=== PATIENT | male | born 1980 | race Two or more races ===

== ENCOUNTER 2022-08-09 09:35 | Emergency (ER) | payer MEDICAID, SELFPAY ==
--- NOTE | ~2022-08-09 | XR_ITS ---
EXAMINATION: XR CHEST CLINICAL INFORMATION: Shortness of breath with asthma COMPARISON: None TECHNIQUE: 2 views of the chest were obtained. FINDINGS: No significant abnormality is noted involving the heart, lungs, mediastinum, bony thorax or soft tissues. XR/XR chest 2V IMPRESSION: Unremarkable examination.
[2022-08-09 09:43] VITALS: BP 104/66; PULSE 87; RESP 19; TEMP 36.6; O2SAT 99; BMI 30.4
--- NOTE | 2022-08-09 10:55 | ED_ITS ---
HPI - Asthma General Chief Complaint: Upper Respiratory Symptoms Stated Complaint: Asthma /albuterol not helping Time Seen by Provider: 08/09/22 10:52 Source: patient Mode of arrival: ambulatory Limitations: no limitations History of Present Illness HPI Narrative: 41 yo male with history of asthma presents to the ER for evaluation of 1 week of cough and runny nose. He has been using his girlfriends inhaler with some improvement but the cough is keeping him up at night. He woke up the other night sweaty and feeling like he had a fever. No other febrile episodes. No nausea, vomiting, abdominal pain or diarrhea. No other sick contacts at home. 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 He only wears a mask sometimes. MD complaint: other (cough) Onset (ago): week(s) (1) Severity: worse than usual Context: recent URI Associated symptoms: dry cough Treatments Prior to Arrival: inhaled bronchodilator Related Data Current Asthma Therapy: inhaled bronchodilator Previous Rx's Medication Instructions Recorded albuterol sulfate 90 mcg/actuation 2 inh inhalation QID PRN shortness 08/09/22 aerosol inhaler of breath or wheezing #6.7 grams hydrocodone-homatropine 5 mg-1.5 5 ml PO Q4-6H PRN cough #60 mL 08/09/22 mg/5 mL (5 mL) oral syrup (Hycodan) prednisone 20 mg tablet 40 mg PO DAILY #10 tabs 08/09/22 Allergies Allergy/AdvReac Type Severity Reaction Status Date / Time No Known Allergies Allergy Verified 08/09/22 09:42 Review of Systems Review of Systems: Yes all other systems are reviewed and are negative [facility] Social History Social History Advance Directives: Yes Advance Directives Information Provided: Yes Advance Directives on File: No Physical Exam Vital Signs: Vital Signs: Last Vital Signs Temp 98 F 08/09/22 09:43 Pulse 87 08/09/22 09:43 Resp 19 08/09/22 09:43 BP 104/66 08/09/22 09:43 Pulse Ox 99 08/09/22 09:43 O2 Del Method 08/09/22 09:43 BMI result Body Mass Index 30.4 Appearance: Alert. Oriented X3. No acute distress. Eyes: Pupils equal, round and reactive to light. ENT: Pharynx normal. clear, watery nasal discharge. normal TMs bilaterally. Neck: Normal inspection. Neck supple. CVS: Normal heart rate and rhythm. Pulses normal. Respiratory: No respiratory distress. Breath sounds slightly coarse but no wheezing or rhonchi. Skin: Skin warm and dry. Normal skin color. Normal skin turgor. No rashes. Extremities: No lower extremity edema. Neuro: Oriented X 3. Nonfocal Course Course Course Narrative: 41 yo male presenting with cough, runny nose, SOB x1 week. Most likely viral syndrome. Lungs without wheezing. CXR without pneumonia. Will d/c with albuertol, prednisone and antitussive. Patient agrees with plan. asl interpreter used to discuss results and plan. Medical Decision Making Differential Diagnosis Differential Diagnoses: The differential diagnosis associated with the presentation includes COVID, Flu, RSV, viral pneumonia, bacterial pneumonia. sinus infection. asthma exacerbation Independent Interpretation I performed an independent interpretation of an: Plain X-Ray Interpretation: CXR reviewed - no focal infiltrate or effusion Radiology Impression Discussion of test interpretation with radiology: I have reviewed the radiologist's reading. Radiologist Impression: FINDINGS: No significant abnormality is noted involving the heart, lungs, mediastinum, bony thorax or soft tissues. XR/XR chest 2V IMPRESSION: Unremarkable examination. Prescription Management I considered prescription management with: Antibiotic not indicated, no PNA Critical Care Time Critical Care Time Critical Care Time: No Discharge Plan Discharge Clinical Impression: Viral infection Patient Disposition: Home, Self-Care Instructions: Viral Syndrome (ED) Additional Instructions: If you develop new or worsening symptoms call 911 or come back to the ER for further evaluation. Prescriptions: New prednisone 20 mg tablet 40 mg PO DAILY Qty: 10 0RF albuterol sulfate 90 mcg/actuation HFA aerosol inhaler 2 inh inhalation QID PRN (Reason: shortness of breath or wheezing) Qty: 6.7 0RF hydrocodone-homatropine [Hycodan] 5-1.5 mg/5 mL (5 mL) syrup 5 ml PO Q4-6H PRN (Reason: cough) Qty: 60 0RF Rx Instructions: Partial Fill upon patient request. Stand Alone Forms: Work/School Release Print Language: Lithuanian
[2022-08-09 12:32] VITALS: BP 109/69; RESP 18
== END 2022-08-09 12:35 | disposition home or self-care (01) ==
PROVIDERS: Emergency Provider Emergency Medicine
DX: B34.9 Viral infection, unspecified (principal); R05.9 Cough, unspecified
CPT/HCPCS: 71046; 99283; 99284

== ENCOUNTER 2023-01-12 14:06 | Emergency (ER) | payer MEDICAID, SELFPAY ==
--- NOTE | ~2023-01-12 | US_ITS ---
EXAMINATION: US SCROTUM US SCROTUM DOPPLER CLINICAL INFORMATION: Pain, swelling of scrotum.. COMPARISON: None available. TECHNIQUE: A sonogram of the scrotum was performed assessing stone-scale appearance and color Doppler flow. Spectral Doppler analysis of the arterial and venous flow were performed in the testes bilaterally. FINDINGS: The left testicle is slightly larger than right testicle. The right testicle measures 5.1 x 2 x 3.5 cm, 18 mL. The left testicle is 5.3 x 2.9 x 3 cm, 24 mL. The left testicle is mildly heterogeneous. The right testicle has normal echotexture. No testicular masses or microlithiasis. Color Doppler images with spectral waveforms show presence of normal arterial and venous flow within the testicles. On a [id number] comparison of the vascularity of the testicles, the left testicle is mildly hypervascular when compared to the right. Also, there appears to be slightly increased vascularity of the left epididymis when compared to the right. These findings would raise suspicion for mild epididymoorchitis if clinically there is any left-sided pain. No hydrocele or extratesticular mass. There are a few cysts of the right epididymis, largest in the head measuring 1.4 x 1.4 x 1.5 cm. No cysts within the left epididymis. No varicocele. US/US scrotum IMPRESSION: * There is mild increased vascularity of the left testicle and left epididymis when compared to the right, and left testicle has slightly heterogeneous echotexture. These findings are suspicious for mild left-sided epididymoorchitis. However, no left-sided hydrocele. Query if patient has any left scrotal pain. * There are a few cysts of the right epididymis, largest in the head 1.5 cm.
--- NOTE | ~2023-01-12 | US_ITS ---
EXAMINATION: US SCROTUM US SCROTUM DOPPLER CLINICAL INFORMATION: Pain, swelling of scrotum.. COMPARISON: None available. TECHNIQUE: A sonogram of the scrotum was performed assessing stone-scale appearance and color Doppler flow. Spectral Doppler analysis of the arterial and venous flow were performed in the testes bilaterally. FINDINGS: The left testicle is slightly larger than right testicle. The right testicle measures 5.1 x 2 x 3.5 cm, 18 mL. The left testicle is 5.3 x 2.9 x 3 cm, 24 mL. The left testicle is mildly heterogeneous. The right testicle has normal echotexture. No testicular masses or microlithiasis. Color Doppler images with spectral waveforms show presence of normal arterial and venous flow within the testicles. On a [id number]-wjca comparison of the vascularity of the testicles, the left testicle is mildly hypervascular when compared to the right. Also, there appears to be slightly increased vascularity of the left epididymis when compared to the right. These findings would raise suspicion for mild epididymoorchitis if clinically there is any left-sided pain. No hydrocele or extratesticular mass. There are a few cysts of the right epididymis, largest in the head measuring 1.4 x 1.4 x 1.5 cm. No cysts within the left epididymis. No varicocele. US/US scrotum doppler IMPRESSION: * There is mild increased vascularity of the left testicle and left epididymis when compared to the right, and left testicle has slightly heterogeneous echotexture. These findings are suspicious for mild left-sided epididymoorchitis. However, no left-sided hydrocele. Query if patient has any left scrotal pain. * There are a few cysts of the right epididymis, largest in the head 1.5 cm.
[2023-01-12 14:35] VITALS: BP 129/82; PULSE 86; RESP 18; TEMP 36.9; O2SAT 100; BMI 29.8
--- NOTE | 2023-01-12 14:36 | ED.GENADULT ---
HPI - General Adult General Chief complaint: General Medical Stated complaint: pain in groin ? Time Seen by Provider: 01/12/23 21:02 Related Data Previous Rx's Medication Instructions Recorded albuterol sulfate 90 mcg/actuation 2 inh inhalation QID PRN shortness 08/09/22 aerosol inhaler of breath or wheezing #6.7 grams hydrocodone-homatropine 5 mg-1.5 5 ml PO Q4-6H PRN cough #60 mL 08/09/22 mg/5 mL (5 mL) oral syrup (Hycodan) prednisone 20 mg tablet 40 mg PO DAILY #10 tabs 08/09/22 ibuprofen 400 mg tablet 400 mg PO Q6H PRN pain #20 tabs 01/12/23 levofloxacin 500 mg tablet 500 mg PO DAILY #10 tabs 01/12/23 Allergies Allergy/AdvReac Type Severity Reaction Status Date / Time No Known Allergies Allergy Verified 01/12/23 14:40 [facility] Social History Social History Alcohol intake: never Smoked in Last 30 Days: No Use of substances other than those prescribed or required for medical reasons: No Substance Use Type: Crack/Cocaine Any prior treatment program specific to substance use: No Advance Directives: No Advance Directives Information Provided: Yes Physical Exam ED Vital Signs: BMI result Body Mass Index 29.8 Course Course Course Narrative: RME performed by Codi Taylor PA-C. Patient is a 42 year old assigned male at presenting to the emergency department with left sided testicular pain. Labs and imaging ordered. Patient placed back in the waiting room pending room availability and results. Please refer to Dr. Parks's note. Patient was seen and discharged by Dr. Parks. Dr. Parks created, completed, and signed his own note. Medical Decision Making Lab Data 01/12/23 16:26 01/12/23 16:26 Labs: Lab Results 01/12/23 01/12/23 01/12/23 Range/Units 16:26 16:26 20:06 WBC 9.0 (4.8-10.8) X10*3/uL RBC 4.49 L (4.60-5.80) X10*6/uL Hgb 14.2 (14.0-18.0) g/dl Hct 42.3 (42.0-52.0) % MCV 94.2 (80.0-98.0) fL MCH 31.6 (27.0-33.0) pg MCHC 33.6 (31.0-36.0) g/dl RDW 12.1 (11.0-16.0) % Plt Count 393 (160-400) X10*3/uL MPV 8.4 L (9.4-12.4) fL Immature Gran % (Auto) 0.1 (0.0-0.4) % Neut % (Auto) 58.8 (45-73) % Lymph % (Auto) 28.9 (20-40) % [place] % (Auto) 9.8 (2-11) % Eos % (Auto) 2.2 (0-4) % Baso % (Auto) 0.2 (0-2) % Lymph # (Auto) 2.6 (1.2-4.9) X10*3/uL [place] # (Auto) 0.9 (0.1-1.2) X10*3/uL Eos # (Auto) 0.2 (0.0-0.4) X10*3/uL Baso # (Auto) 0.0 (0.0-0.2) X10*3/uL Abs Immat Gran (auto) 0.01 (0.00-0.03) X10*3/uL Absolute Neuts (auto) 5.3 (2.0-8.3) x10*3/uL Absolute Nucleated RBC 0.000 (0.0-0.012) X10*3/uL Nucleated RBC % (auto) 0.0 (0.0-0.2) /100WBC Sodium 138 (135-145) mmol/L Potassium 4.0 (3.3-5.1) mmol/L Chloride 103 (96-108) mmol/L Carbon Dioxide 27 (22-29) mmol/L Anion Gap 12 (12-20) BUN 15 (9-16) mg/dL Creatinine 1.03 (0.5-1.4) mg/dL Estim Creat Clear Calc 98.9 Estimated GFR > 60 Random Glucose 85 (60-115) mg/dL Calcium 9.9 (8.4-10.2) mg/dL Magnesium 2.3 (1.6-2.6) mg/dL Total Bilirubin 0.4 (0.0-1.0) mg/dL AST 18 (5-37) U/L ALT 19 (0-40) U/L Alkaline Phosphatase 82 (39-117) U/L Total Protein 8.7 H (6.5-8.0) g/dL Albumin 4.1 (3.5-5.0) g/dL Lipase 24 (8-78) U/L Urine Color Yellow Urine Appearance Clear Urine pH 5.5 (5.0-9.0) Ur Specific [place] 1.025 (1.005-1.025) Urine Protein Negative (Neg-Trace) mg/dL Urine Glucose (UA) Negative (Negative) mg/dL Urine Ketones Trace (Negative) mg/dL Urine Blood Negative (Negative) Urine Nitrite Negative (Negative) Ur Leukocyte Esterase Negative (Negative) Chlam trachomat DNA PCR (Not Detect.) N.gonorrhoeae DNA (PCR) (Not Detect.) 01/12/23 Range/Units 21:39 WBC (4.8-10.8) X10*3/uL RBC (4.60-5.80) X10*6/uL Hgb (14.0-18.0) g/dl Hct (42.0-52.0) % MCV (80.0-98.0) fL MCH (27.0-33.0) pg MCHC (31.0-36.0) g/dl RDW (11.0-16.0) % Plt Count (160-400) X10*3/uL MPV (9.4-12.4) fL Immature Gran % (Auto) (0.0-0.4) % Neut % (Auto) (45-73) % Lymph % (Auto) (20-40) % [place] % (Auto) (2-11) % Eos % (Auto) (0-4) % Baso % (Auto) (0-2) % Lymph # (Auto) (1.2-4.9) X10*3/uL [place] # (Auto) (0.1-1.2) X10*3/uL Eos # (Auto) (0.0-0.4) X10*3/uL Baso # (Auto) (0.0-0.2) X10*3/uL Abs Immat Gran (auto) (0.00-0.03) X10*3/uL Absolute Neuts (auto) (2.0-8.3) x10*3/uL Absolute Nucleated RBC (0.0-0.012) X10*3/uL Nucleated RBC % (auto) (0.0-0.2) /100WBC Sodium (135-145) mmol/L Potassium (3.3-5.1) mmol/L Chloride (96-108) mmol/L Carbon Dioxide (22-29) mmol/L Anion Gap (12-20) BUN (9-16) mg/dL Creatinine (0.5-1.4) mg/dL Estim Creat Clear Calc Estimated GFR Random Glucose (60-115) mg/dL Calcium (8.4-10.2) mg/dL Magnesium (1.6-2.6) mg/dL Total Bilirubin (0.0-1.0) mg/dL AST (5-37) U/L ALT (0-40) U/L Alkaline Phosphatase (39-117) U/L Total Protein (6.5-8.0) g/dL Albumin (3.5-5.0) g/dL Lipase (8-78) U/L Urine Color Urine Appearance Urine pH (5.0-9.0) Ur Specific [place] (1.005-1.025) Urine Protein (Neg-Trace) mg/dL Urine Glucose (UA) (Negative) mg/dL Urine Ketones (Negative) mg/dL Urine Blood (Negative) Urine Nitrite (Negative) Ur Leukocyte Esterase (Negative) Chlam trachomat DNA PCR NOT DETECTED (Not Detect.) N.gonorrhoeae DNA (PCR) NOT DETECTED (Not Detect.) Discharge Plan Discharge Clinical Impression: Acute epididymitis Patient Disposition: Home, Self-Care Instructions: Epididymitis (ED) Prescriptions: New levofloxacin 500 mg tablet 500 mg PO DAILY Qty: 10 0RF ibuprofen 400 mg tablet 400 mg PO Q6H PRN (Reason: pain) Qty: 20 0RF No Action prednisone 20 mg tablet 40 mg PO DAILY Qty: 10 0RF albuterol sulfate 90 mcg/actuation HFA aerosol inhaler 2 inh inhalation QID PRN (Reason: shortness of breath or wheezing) Qty: 6.7 0RF hydrocodone-homatropine [Hycodan] 5-1.5 mg/5 mL (5 mL) syrup 5 ml PO Q4-6H PRN (Reason: cough) Qty: 60 0RF Rx Instructions: Partial Fill upon patient request. Referrals: Lawrence Spence MD [Physician] - 01/15/23 Stand Alone Forms: Work/School Release Interventions: ED Discharge Assessment Last Done: 01/12/23 21:37 Discharge Date/Time: 01/12/23 21:42 Print Language: Divehi
[2023-01-12 16:29] LABS: MANUAL DIFF FLAG NO
[2023-01-12 16:32] LABS: Basophils Percent Auto 0.2 % (0-2); Eosinophils Absolute Auto 0.2 X10*3/uL (0.0-0.4); Eosinophils Percent Auto 2.2 % (0-4); Hematocrit 42.3 % (42.0-52.0); Hemoglobin 14.2 g/dl (14.0-18.0); Imm Gran Abs Auto 0.01 X10*3/uL (0.00-0.03); Imm Gran Pct Auto 0.1 % (0.0-0.4); Lymphocytes Absolute Auto 2.6 X10*3/uL (1.2-4.9); Lymphocytes Percent Auto 28.9 % (20-40); Mean Corpuscular HGB Conc 33.6 g/dl (31.0-36.0); Mean Corpuscular Hemoglobin 31.6 pg (27.0-33.0); Mean Corpuscular Volume 94.2 fL (80.0-98.0); Mean Platelet Volume 8.4 fL (9.4-12.4); Monocytes Absolute Auto 0.9 X10*3/uL (0.1-1.2); Monocytes Percent Auto 9.8 % (2-11); Neutrophils Absolute Auto 5.3 x10*3/uL (2.0-8.3); Neutrophils Percent Auto 58.8 % (45-73); Platelet Count 393 X10*3/uL (160-400); Red Blood Count 4.49 X10*6/uL (4.60-5.80); Red Cell Distribution Width 12.1 % (11.0-16.0)
[2023-01-12 17:35] LABS: Alanine Aminotransferase 19 U/L (0-40); Albumin Level 4.1 g/dL (3.5-5.0); Alkaline Phosphatase 82 U/L (39-117); Anion Gap 12 (12-20); Aspartate Amino Transferase 18 U/L (5-37); Bilirubin Total 0.4 mg/dL (0.0-1.0); Blood Urea Nitrogen 15 mg/dL (9-16); Calcium 9.9 mg/dL (8.4-10.2); Carbon Dioxide 27 mmol/L (22-29); Chloride 103 mmol/L (96-108); Creatinine Clr Calc Pharmacy 98.9; Estimated Glomerular Filt Rate > 60; Glucose Random 85 mg/dL (60-115); Lipase 24 U/L (8-78); Magnesium 2.3 mg/dL (1.6-2.6); Sodium 138 mmol/L (135-145); Total Protein 8.7 g/dL (6.5-8.0)
[2023-01-12 20:03] VITALS: BP 128/82; PULSE 68; RESP 16; TEMP 37.1; O2SAT 98
--- NOTE | 2023-01-12 20:08 | MHC.EDTECH ---
PATIENT URINE SAMPLE COLLECTED AND SENT TO LAB ,VITALS SIGN TAKEN .
[2023-01-12 20:20] LABS: Appearance Urine Clear; Color Urine Yellow; Glucose Urine UA Negative (Negative); Leukocyte Esterase Urine Negative (Negative); Nitrite Urine Negative (Negative); PH 5.5 (5.0-9.0); Specific Gravity - Urine 1.025 (1.005-1.025); Urine Blood Negative (Negative); Urine Ketones Trace mg/dL (Negative); Urine Protein Negative (Neg-Trace)
[2023-01-12 20:46] VITALS: BP 127/77; PULSE 68; RESP 17; TEMP 37.3; O2SAT 100
--- NOTE | 2023-01-12 21:18 | ED.GENADULT ---
HPI - General Adult General Chief complaint: General Medical Stated complaint: pain in groin ? Time Seen by Provider: 01/12/23 21:02 History of Present Illness HPI narrative: Patient is 42 years old presented today with having pain to the left testicle. There is no fever no chills no systemic complaints. Patient is from home. Sexually active with 1 partner. No penile discharge. Related Data Previous Rx's Medication Instructions Recorded albuterol sulfate 90 mcg/actuation 2 inh inhalation QID PRN shortness 08/09/22 aerosol inhaler of breath or wheezing #6.7 grams hydrocodone-homatropine 5 mg-1.5 5 ml PO Q4-6H PRN cough #60 mL 08/09/22 mg/5 mL (5 mL) oral syrup (Hycodan) prednisone 20 mg tablet 40 mg PO DAILY #10 tabs 08/09/22 ibuprofen 400 mg tablet 400 mg PO Q6H PRN pain #20 tabs 01/12/23 levofloxacin 500 mg tablet 500 mg PO DAILY #10 tabs 01/12/23 Allergies Allergy/AdvReac Type Severity Reaction Status Date / Time No Known Allergies Allergy Verified 01/12/23 14:40 Review of Systems Review of Systems: No fever no chills no systemic complaints Yes all other systems are reviewed and are negative [facility] Past Medical History Attestation statement: The following information was validated with the patient. Social History Social History Alcohol intake: current Alcohol intake frequency: a few times a week Substance Use Type: Crack/Cocaine Advance Directives: No Advance Directives Information Provided: Yes Physical Exam ED Vital Signs: Vital Signs - 24 hr 01/12/23 14:35 01/12/23 20:03 01/12/23 20:46 Temperature 98.5 F 98.7 F 99.2 F Pulse Rate 86 68 68 Respiratory Rate 18 16 17 Blood Pressure 129/82 128/82 127/77 Pulse Oximetry 100 98 100 Oxygen Delivery Method Room Air Room Air Room Air BMI result Body Mass Index 29.8 Appearance: Alert. Oriented X3. No acute distress. Eyes: Pupils equal, round and reactive to light. ENT: Pharynx normal. Neck: Normal inspection. Neck supple. No lymph nodes noted. No crepitus CVS: Normal heart rate and rhythm. Pulses normal. Normal S1 and S2 Respiratory: No respiratory distress. Breath sounds normal. No Wheezing. No rales Abdomen: Soft and nontender. No rigidity. No distention. good BS x4 Genital exam there is mild tenderness on palpation testicle. Cremasteric reflex intact. There is no discharge on the strip of the penis. There is no hernia that was palpable Skin: Skin warm and dry. Normal skin color. Normal skin turgor. Extremities: No lower extremity edema. Neurovascular intact to all extremities. No Lacerations. No Rash Neuro: Oriented X 3. No motor deficit. No sensory deficit. Moving all extermities. No slurred speech Medical Decision Making Differential Diagnosis Differential includes testicular torsion, epididymitis/orchitis. Patient ultrasound of the testicles are negative for any evidence of torsion. There is increased blood flow to the left testicle consistent with having epididymitis. Will start patient on antibiotics follow-up on an outpatient basis. In stable condition. Consult Healthcare Provider Are Lab Data MDM Lab Attestation statement: I reviewed the patient's lab results. 01/12/23 16:26 01/12/23 16:26 Labs: Lab Results 01/12/23 01/12/23 01/12/23 Range/Units 16:26 16:26 20:06 WBC 9.0 (4.8-10.8) X10*3/uL RBC 4.49 L (4.60-5.80) X10*6/uL Hgb 14.2 (14.0-18.0) g/dl Hct 42.3 (42.0-52.0) % MCV 94.2 (80.0-98.0) fL MCH 31.6 (27.0-33.0) pg MCHC 33.6 (31.0-36.0) g/dl RDW 12.1 (11.0-16.0) % Plt Count 393 (160-400) X10*3/uL MPV 8.4 L (9.4-12.4) fL Immature Gran % (Auto) 0.1 (0.0-0.4) % Neut % (Auto) 58.8 (45-73) % Lymph % (Auto) 28.9 (20-40) % [place] % (Auto) 9.8 (2-11) % Eos % (Auto) 2.2 (0-4) % Baso % (Auto) 0.2 (0-2) % Lymph # (Auto) 2.6 (1.2-4.9) X10*3/uL [place] # (Auto) 0.9 (0.1-1.2) X10*3/uL Eos # (Auto) 0.2 (0.0-0.4) X10*3/uL Baso # (Auto) 0.0 (0.0-0.2) X10*3/uL Abs Immat Gran (auto) 0.01 (0.00-0.03) X10*3/uL Absolute Neuts (auto) 5.3 (2.0-8.3) x10*3/uL Absolute Nucleated RBC 0.000 (0.0-0.012) X10*3/uL Nucleated RBC % (auto) 0.0 (0.0-0.2) /100WBC Sodium 138 (135-145) mmol/L Potassium 4.0 (3.3-5.1) mmol/L Chloride 103 (96-108) mmol/L Carbon Dioxide 27 (22-29) mmol/L Anion Gap 12 (12-20) BUN 15 (9-16) mg/dL Creatinine 1.03 (0.5-1.4) mg/dL Estim Creat Clear Calc 98.9 Estimated GFR > 60 Random Glucose 85 (60-115) mg/dL Calcium 9.9 (8.4-10.2) mg/dL Magnesium 2.3 (1.6-2.6) mg/dL Total Bilirubin 0.4 (0.0-1.0) mg/dL AST 18 (5-37) U/L ALT 19 (0-40) U/L Alkaline Phosphatase 82 (39-117) U/L Total Protein 8.7 H (6.5-8.0) g/dL Albumin 4.1 (3.5-5.0) g/dL Lipase 24 (8-78) U/L Urine Color Yellow Urine Appearance Clear Urine pH 5.5 (5.0-9.0) Ur Specific [place] 1.025 (1.005-1.025) Urine Protein Negative (Neg-Trace) mg/dL Urine Glucose (UA) Negative (Negative) mg/dL Urine Ketones Trace (Negative) mg/dL Urine Blood Negative (Negative) Urine Nitrite Negative (Negative) Ur Leukocyte Esterase Negative (Negative) Independent Interpretation I performed an independent interpretation of an: Ultrasound Interpretation: Good blood flow to the left testicle Radiology Impression Discussion of test interpretation with radiology: I have reviewed the radiologist's reading. Independent Historian Clinical information obtained from an independent historian. History obtained from or confirmed by: Spouse Prescription Management I considered prescription management with: Pain Medication and Antibiotic Discharge Plan Discharge Clinical Impression: Acute epididymitis Patient Disposition: Home, Self-Care Instructions: Epididymitis (ED) Prescriptions: New levofloxacin 500 mg tablet 500 mg PO DAILY Qty: 10 0RF ibuprofen 400 mg tablet 400 mg PO Q6H PRN (Reason: pain) Qty: 20 0RF No Action prednisone 20 mg tablet 40 mg PO DAILY Qty: 10 0RF albuterol sulfate 90 mcg/actuation HFA aerosol inhaler 2 inh inhalation QID PRN (Reason: shortness of breath or wheezing) Qty: 6.7 0RF hydrocodone-homatropine [Hycodan] 5-1.5 mg/5 mL (5 mL) syrup 5 ml PO Q4-6H PRN (Reason: cough) Qty: 60 0RF Rx Instructions: Partial Fill upon patient request. Referrals: Lawrence Spence MD [Physician] - 01/15/23 Stand Alone Forms: Work/School Release Print Language: Cook Islander
[2023-01-12 21:28] VITALS: BP 145/78; PULSE 80; RESP 18; TEMP 37.1; O2SAT 98
[2023-01-13 06:00] LABS: CT PCR NOT DETECTED (Not Detect.); NG PCR NOT DETECTED (Not Detect.)
== END 2023-01-12 21:42 | disposition home or self-care (01) ==
PROVIDERS: Physician Assistant Medical; Emergency Provider Emergency Medicine Emergency Medical Services
DX: N45.1 Epididymitis (principal); N50.812 Left testicular pain; Z79.899 Other long term (current) drug therapy
CPT/HCPCS: 0353U; 36415; 76870; 80053; 81003; 83690; 83735; 85025; 93975; 99284

== ENCOUNTER 2023-06-15 23:37 | Emergency (ER) | payer MEDICAID, SELFPAY ==
--- NOTE | 2023-06-15 | ECG_ITS ---
Test Reason : EPIGASTRIC PAIN Blood Pressure : / mmHG Vent. Rate : 061 BPM Atrial Rate : 061 BPM P-R Int : 126 ms QRS Dur : 084 ms QT Int : 408 ms P-R-T Axes : 029 058 037 degrees QTc Int : 410 ms Normal sinus rhythm Normal ECG No previous ECGs available Referred By: Generic ED Physician Electronically Signed By:SOURAV BAILEY MD
[2023-06-15 23:41] VITALS: BP 112/79; PULSE 62; RESP 18; TEMP 36.9; O2SAT 100; BMI 29.2
--- OUTSIDE RECORDS SUMMARY | 2023-06-16 00:01 | XMS_ITS | Continuity of Care Document ---
Author Name Unknown Organization [facility] Address [address] [place] [id number]- Care Team Providers Care Furniture Assembly Supervisor Name Role Phone Not on Staff, PCP Primary Care Physician Unavail able Encounter [facility] Date(s): 06/01/22 - 06/01/[address] [address]- Discharge Disposition: A-D/C Home Attending Physician: Lee Rees MD Admitting Physician: Lee Rees MD Referring Physician: Not on Staff, Referring MD Allergies, Adverse Reactions, Alerts No Known Allergies Medications Prevacid 30 mg oral enteric coated capsule 1 capsule = 30 mg, By Mouth, 2 times a day, # 60 capsule, 0 Refills, Maintenance, 06/01/22 19:13:00EST, CR Capsule, [id number], Partial fill upon patient request if the prescriptionis for a schedule II opioid drug. Start Date: 06/01/22 Status: Ordered Results Radiology Reports * Exam Date Time Procedure Performing Provider Status 06/01/22 4:00 PM US RUQ Ligia Tobin; Auth (Ve rified) Notes: (US RUQ) Reason For Exam: Abdominal Pain;Other: RESULT: US RUQ US RUQ Hx of Present Illness: RLQ pain for 2 days, denies N V D i'm putting out a lot of gasses , my pain is like a 100 but it isn't pain its fullness gases increase after eating; Reason: Other:; Abdominal Pain; Clinical Question(s): Cholecystitis COMPARISON: None. FINDINGS: Liver: Normal in size and echotexture. No focal lesion. Smooth hepatic contour. Main portal vein patent with normal hepatopetal direction of flow. Gallbladder: No gallstones. Normal wall thickness. No pericholecystic fluid. Negative Mahan sign. Biliary Tree: No intrahepatic or extrahepatic bile duct dilation is identified. Common duct measures: 0.2 cm. Pancreas: No abnormality in the visualized portions of the pancreas. Right kidney: 10.7 cm in length. Normal parenchymal echotexture and thickness. No hydronephrosis, stone or mass. IMPRESSION: Normal right upper quadrant ultrasound. WSN: [id number] Ordering Physician: Manny Mena Dictated By: Curt Hodgson MD Dictated Date/Time: 06/01/22 4:22 pm Reviewed By: Curt Hodgson MD Signed By: Curt Hodgson MD Signed Date/Time: 06/01/22 4:22 pm Transcribed By: DONTAE Transcribed Date/Time: 06/01/22 4:20 pm * Exam Date Time Procedure Performing Provider Status 06/01/22 4:12 PM Chest 2 Views Fronta l and Lat Corinna Martinez; Auth (Verified) Notes: (Chest 2 Views Frontal and Lat) Reason For Exam: Shortness of Breath, Fever;Other: RESULT: Chest 2 Views Frontal and Lat Chest 2 Views Frontal and Lat HX OF PRESENT ILLNESS: RLQ pain for 2 days, denies N V D i'm putting out a lot of gasses , my pain is like a 100 but it isn't pain its fullness gases increase after eating; Reason: Shortness ofBreath, Fever; Clinical Question(s): Pneumonia COMPARISON: None. FINDINGS: LINES AND TUBES: None. LUNGS AND PLEURA: Clear lungs. Normal pulmonary vascularity. No pleural effusion. No pneumothorax. HEART, MEDIASTINUM AND DIANNE: Heart is normal in size. Normal mediastinal and hilar contour. BONES AND SOFT TISSUES: No acute abnormality. No pneumoperitoneum. IMPRESSION: No acute abnormality. I have personally reviewed the images and I agree with this report. WSN: [id number] Ordering Physician: Manny Mena Dictated By: Landen Duran MD Dictated Date/Time: 06/01/22 4:25 pm Reviewed By: Jesus Glass MD Signed By: Jesus Glass MD Signed Date/Time: 06/01/22 4:30 pm Transcribed By: DONTAE Transcribed Date/Time: 06/01/22 4:17 pm Vital Signs Most recent to oldest [Reference Range]: 1 2 3 Oxygen Saturation [94-100 %] 100 % (06/01/22 7:39 PM) 100 % (06/01/22 6:24 PM) 98 % (06/01/22 5:05 PM) Pulse Rate [55-90 bpm] 59 bpm (06/01/22 7:39 PM) 58 bpm (06/01/22 6:24 PM) 57 bpm (06/01/22 5:05 PM) Blood Pressure [90-138/55-84 mm Hg] 116/77mm Hg (06/01/22 7:39 PM) 106/76mm Hg (06/01/22 6:24 PM) 123/74mm Hg (06/01/22 5:05 PM) Respiratory Rate [16-30 br/min] 20 br/min (06/01/22 7:39 PM) 18 br/min (06/01/22 6:24 PM) 16 br/min (06/01/22 5:05 PM) Temperature [96.8-100.4 DegF] 97.9 DegF (06/01/22 6:24 PM) 98.3 DegF (06/01/22 5:05 PM) 98.3 DegF (06/01/22 12:37 PM) Mode of Delivery (Oxygen) Room air (06/01/22 7:39 PM) Room air (06/01/22 6:24 PM) Room air (06/01/22 5:05 PM) Blood pressure sites Arm, left (06/01/22 7:39 PM) Arm, left (06/01/22 6:24 PM) Arm, right (06/01/22 5:05 PM) Temperature Route Oral (06/01/22 6:24 PM) Oral (06/01/22 5:05 PM) Oral (06/01/22 12:37 PM) Note * Cabrera SHANKS, Lee R: VERIFY, PERFORM, SIGN Event Display: Patient Education Handout Authored Date: * MERLINSPdomingoriALMA munguia S: TRANSCRIBE Curt Hodgson MD: VERIFY Event Display: Result: Authored Date: US RUQ Hx of Present Illness: RLQ pain for 2 days, denies N V D i'm putting out a lot of gasses , my pain is like a 100 but it isn't pain its fullness gases increase after eating; Reason: Other:; Abdominal Pain; Clinical Question(s): Cholecystitis COMPARISON: None. FINDINGS: Liver: Normal in size and echotexture. No focal lesion. Smooth hepatic contour. Main portal vein patent with normal hepatopetal direction of flow. Gallbladder: No gallstones. Normal wall thickness. No pericholecystic fluid. Negative Mahan sign. Biliary Tree: No intrahepatic or extrahepatic bile duct dilation is identified. Common duct measures: 0.2 cm. Pancreas: No abnormality in the visualized portions of the pancreas. Right kidney: 10.7 cm in length. Normal parenchymal echotexture and thickness. No hydronephrosis, stone or mass. IMPRESSION: Normal right upper quadrant ultrasound. WSN: [id number] Ordering Physician: Manny Mena Dictated By: Curt Hodgson MD Dictated Date/Time: 06/01/22 4:22 pm Reviewed By: Curt Hodgson MD Signed By: Curt Hodgson MD Signed Date/Time: 06/01/22 4:22 pm Transcribed By: DONTAE Transcribed Date/Time: 06/01/22 4:20 pm * BHSPowerscribe , CIS S: TRANSCRIBE Jesus Glass MD S: VERIFY Landen Duran MD: SIGN Event Display: Result: Authored Date: Chest 2 Views Frontal and Lat HX OF PRESENT ILLNESS: RLQ pain for 2 days, denies N V D i'm putting out a lot of gasses , my pain is like a 100 but it isn't pain its fullness gases increase after eating; Reason: Shortness ofBreath, Fever; Clinical Question(s): Pneumonia COMPARISON: None. FINDINGS: LINES AND TUBES: None. LUNGS AND PLEURA: Clear lungs. Normal pulmonary vascularity. No pleural effusion. No pneumothorax. HEART, MEDIASTINUM AND DIANNE: Heart is normal in size. Normal mediastinal and hilar contour. BONES AND SOFT TISSUES: No acute abnormality. No pneumoperitoneum. IMPRESSION: No acute abnormality. I have personally reviewed the images and I agree with this report. WSN: [id number] Ordering Physician: aMnny Mena Dictated By: Landen Duran MD Dictated Date/Time: 06/01/22 4:25 pm Reviewed By: Jesus Glass MD Signed By: Jesus Glass MD Signed Date/Time: 06/01/22 4:30 pm Transcribed By: DONTAE Transcribed Date/Time: 06/01/22 4:17 pm Patient Care team information Care Team Personnel Name: Not on Staff, PCP Position: [facility] Physician (General Medicine) Member Role: PCP Name: *[facility], ED Attending Position: [facility] ED Attendings Patient Name: Pat Palma Position: [facility] ED TA [facility] Name: Lee Rees MD Position: [facility] ED Medicine MD Member Role: Admitting Physician Address: Address: [address] [place] [address] Name: Ligia Verdin RN Position: [facility] ED RN W/OE and Tasks Member Role: Patient Care Provider Name: Eleanor Laureano RN Position: [facility] ED RN W/OE and Tasks Member Role: Patient Care Provider
[2023-06-16 00:02] LABS: MANUAL DIFF FLAG NO
[2023-06-16 00:06] LABS: Basophils Percent Auto 0.3 % (0-2); Eosinophils Absolute Auto 0.3 X10*3/uL (0.0-0.4); Eosinophils Percent Auto 3.8 % (0-4); Hematocrit 42.9 % (42.0-52.0); Hemoglobin 14.6 g/dl (14.0-18.0); Imm Gran Abs Auto 0.01 X10*3/uL (0.00-0.03); Imm Gran Pct Auto 0.1 % (0.0-0.4); Lymphocytes Absolute Auto 3.6 X10*3/uL (1.2-4.9); Lymphocytes Percent Auto 45.8 % (20-40); Mean Corpuscular Hemoglobin 32.5 pg (27.0-33.0); Mean Corpuscular Volume 95.5 fL (80.0-98.0); Mean Platelet Volume 8.9 fL (9.4-12.4); Monocytes Absolute Auto 0.8 X10*3/uL (0.1-1.2); Monocytes Percent Auto 9.5 % (2-11); Neutrophils Absolute Auto 3.2 x10*3/uL (2.0-8.3); Neutrophils Percent Auto 40.5 % (45-73); Platelet Count 294 X10*3/uL (160-400); Red Blood Count 4.49 X10*6/uL (4.60-5.80); Red Cell Distribution Width 12.1 % (11.0-16.0); White Blood Count 7.9 X10*3/uL (4.8-10.8)
[2023-06-16 00:21] LABS: Alanine Aminotransferase 29 U/L (0-40); Albumin Level 4.2 g/dL (3.5-5.0); Alkaline Phosphatase 93 U/L (39-117); Anion Gap 13 (12-20); Aspartate Amino Transferase 19 U/L (5-37); Bilirubin Total 0.3 mg/dL (0.0-1.0); Blood Urea Nitrogen 18 mg/dL (9-16); Calcium 9.3 mg/dL (8.4-10.2); Carbon Dioxide 26 mmol/L (22-29); Chloride 107 mmol/L (96-108); Creatinine Clr Calc Pharmacy 109.8; Estimated Glomerular Filt Rate > 60; Glucose Random 104 mg/dL (60-115); Potassium 3.8 mmol/L (3.3-5.1); Sodium 142 mmol/L (135-145); Total Protein 7.6 g/dL (6.5-8.0)
--- NOTE | 2023-06-16 00:34 | ED_ITS ---
HPI - Abdominal Pain General Chief Complaint: Abdominal Pain Stated Complaint: Epigastric Pain Time Seen by Provider: 06/16/23 00:32 Source: patient Mode of arrival: ambulatory Limitations: language barrier (Patient's 1st language is Faroese, he speaks some Vietnamese, mental health assistant used) History of Present Illness HPI narrative: 42-year-old male who presents emergency department for evaluation of epigastric pain. He states the pain started approximately 1-2 hours prior to coming to the emergency department. He states the pain is been intermittent. He describes the pain is a tightness which is 10/10 at its worst. This is 1st episode of this type pain. He states he was sick last week with a flu-like illness and was taking DayQuil but the symptoms resolved. The patient states that he did drink 12 beers yesterday and did use crack cocaine yesterday. He denied fever, chills, chest pain, shortness of breath, cough, nausea, vomiting Related Data Previous Rx's Medication Instructions Recorded albuterol sulfate 90 mcg/actuation 2 inh inhalation QID PRN shortness 08/09/22 aerosol inhaler of breath or wheezing #6.7 grams hydrocodone-homatropine 5 mg-1.5 5 ml PO Q4-6H PRN cough #60 mL 08/09/22 mg/5 mL (5 mL) oral syrup (Hycodan) prednisone 20 mg tablet 40 mg (2 x 20 mg) PO DAILY #10 tabs 08/09/22 ibuprofen 400 mg tablet 400 mg PO Q6H PRN pain #20 tabs 01/12/23 levofloxacin 500 mg tablet 500 mg PO DAILY #10 tabs 01/12/23 aluminum hydrox-magnesium carb 254 10 ml PO QID PRN dyspepsia #355 mL 06/16/23 mg-237.5 mg/5 mL oral suspension (Gaviscon Extra Strength) omeprazole 20 mg capsule,delayed 20 mg PO DAILY 30 days #30 caps 06/16/23 release Allergies Allergy/AdvReac Type Severity Reaction Status Date / Time No Known Allergies Allergy Verified 01/12/23 14:40 Review of Systems Review of Systems Yes all other systems are reviewed and are negative PMFSH Past Medical History [facility] Narrative: Past medical history: None. Social history: Patient does smoke 2-3 cigarettes per day. He drinks alcohol once a week he states that he drinks 12 beers at a time. He last drank yesterday. The patient does use crack cocaine last use yesterday Social History Alcohol intake: current Alcohol intake frequency: a few times a month Alcohol type: beer Smoked in Last 30 Days: Yes Use of substances other than those prescribed or required for medical reasons: No Substance Use Type: Crack/Cocaine Last Used Substance: Hours (ago) Advance Directives: No Advance Directives Information Provided: Yes Physical Exam ED Vital Signs: Vital Signs - 24 hr 06/15/23 23:41 06/16/23 01:09 Temperature 98.4 F 98.0 F Pulse Rate 62 56 Respiratory Rate 18 16 Blood Pressure 112/79 115/84 Pulse Oximetry 100 99 Oxygen Delivery Method Room Air Room Air BMI result Body Mass Index 29.2 Vital signs were normal Exam General: Awake, alert in no distress Head: Normocephalic, atraumatic EENT: PERRL, Lids normal, sclera normal, conjunctiva normal, nose normal , ears normal, throat without erythema or exudates Neck: Supple, no adenopathy, no trachea midline or C-spine tenderness Lung: breath sounds symmetric, no wheezing, rales or rhonchi Chest: symmetric movement, nontender Heart: regular rate and rhythm, normal S1, S2 no murmurs or rubs Abdomen: soft, mild to moderate epigastric tenderness, nondistended, normal bowel sounds Back: no vertebral tenderness, no CVAT Extremities: no deformities, moves all extremities symmetrically Neuro: Awake, alert, oriented, normal speech,, moves all extremities symmetrically Psych: Pleasant, cooperative Medical Decision Making Medical Decision Making MDM Narrative: 42-year-old male with no significant past medical history, who presents emergency department for evaluation of epigastric tightness which began 1-2 hours prior to coming to the emergency department, he states that came on suddenly and has been intermittent since onset. States the pain is 10/10 at its worst. Patient did drink 12 beers yesterday and did smoke crack cocaine yesterday. Vital signs were normal. Exam did reveal epigastric tenderness. Following evaluation was ordered: CBC, CMP, troponin, EKG Patient was treated with Maalox 30 cc orally, viscous lidocaine 10 cc orally and 10 cc orally 01:20 My interpretation patient's laboratory evaluation is as follows: CBC and CMP were normal. Troponin was below detectable limits Patient's 12 EKG was unremarkable. Patient improved after the above treatment. Patient's symptoms are most likely secondary to gastritis secondary to his alcohol use disorder. Patient was prescribed Prilosec and extra-strength Gaviscon I did discuss the risks of using intranasal Narcan with the patient, he is not interested in talking to our care team at this time. Patient will be discharged home with intranasal Narcan Differential Diagnosis Differential Diagnoses: The differential diagnosis associated with the presentation includes Differential diagnosis includes was not limited to gastritis, GERD, cardiac ischemia, myocardial infarction, muscle pain Admission/Observation Consideration of admission/observation: Escalation of care including admission/observation considered Lab Data MDM Lab Attestation statement: I reviewed the patient's lab results. My interpretation patient's laboratory evaluation is as follows: CBC was normal, CMP was normal. 06/15/23 23:57 06/15/23 23:57 Labs: Lab Results 06/15/23 Range/Units 23:57 WBC 7.9 (4.8-10.8) X10*3/uL RBC 4.49 L (4.60-5.80) X10*6/uL Hgb 14.6 (14.0-18.0) g/dl Hct 42.9 (42.0-52.0) % MCV 95.5 (80.0-98.0) fL MCH 32.5 (27.0-33.0) pg MCHC 34.0 (31.0-36.0) g/dl RDW 12.1 (11.0-16.0) % Plt Count 294 D (160-400) X10*3/uL MPV 8.9 L (9.4-12.4) fL Immature Gran % (Auto) 0.1 (0.0-0.4) % Neut % (Auto) 40.5 L (45-73) % Lymph % (Auto) 45.8 H (20-40) % Traverse % (Auto) 9.5 (2-11) % Eos % (Auto) 3.8 (0-4) % Baso % (Auto) 0.3 (0-2) % Lymph # (Auto) 3.6 (1.2-4.9) X10*3/uL Traverse # (Auto) 0.8 (0.1-1.2) X10*3/uL Eos # (Auto) 0.3 (0.0-0.4) X10*3/uL Baso # (Auto) 0.0 (0.0-0.2) X10*3/uL Abs Immat Gran (auto) 0.01 (0.00-0.03) X10*3/uL Absolute Neuts (auto) 3.2 (2.0-8.3) x10*3/uL Absolute Nucleated RBC 0.000 (0.0-0.012) X10*3/uL Nucleated RBC % (auto) 0.0 (0.0-0.2) /100WBC Sodium 142 (135-145) mmol/L Potassium 3.8 (3.3-5.1) mmol/L Chloride 107 (96-108) mmol/L Carbon Dioxide 26 (22-29) mmol/L Anion Gap 13 (12-20) BUN 18 H (9-16) mg/dL Creatinine 0.92 (0.5-1.4) mg/dL Estim Creat Clear Calc 109.8 Estimated GFR > 60 Random Glucose 104 (60-115) mg/dL Calcium 9.3 D (8.4-10.2) mg/dL Total Bilirubin 0.3 (0.0-1.0) mg/dL AST 19 (5-37) U/L ALT 29 (0-40) U/L Alkaline Phosphatase 93 (39-117) U/L Troponin I High Sens < 2.7 (<3.5-35.0) ng/L Total Protein 7.6 (6.5-8.0) g/dL Albumin 4.2 (3.5-5.0) g/dL Independent Interpretation I performed an independent interpretation of an: EKG Interpretation: My independent interpretation patient's 12 EKG done at 23:52 hours is as follows: Normal sinus rhythm rate of 61, normal NC interval, QRS duration and QTC interval, no ST segment elevation, no ST segment depression, flattened T- wave in lead 3, no PACs, no PVCs Medications Administered Discontinued Medications Generic Name Dose Route Start Last Admin Trade Name Freq PRN Reason Stop Dose Admin Al Hydroxide/Mg Hydroxide 30 ml 06/16/23 00:48 11/25/23 01:05 Magnesium Hydrox/Alum Hydrox 30 Ml Oral.Susp PO 06/16/23 00:49 30 ml ONCE STA Administration Belladonna Alkaloids/Phenobarbital 10 ml 06/16/23 00:48 06/16/23 01:05 Phenobarb/Hyoscy/Atropine/Scop 10 Ml Elixir PO 06/16/23 00:49 10 ml ONCE ONE Administration Lidocaine HCl 10 ml 06/16/23 00:48 06/16/23 01:05 Lidocaine Hcl Viscous 2 % 15 Ml Solution PO 06/16/23 00:49 10 ml ONCE ONE Administration Discharge Plan Discharge Clinical Impression: Cocaine use Gastritis Qualifiers: Gastritis type: unspecified gastritis Chronicity: acute Gastritis bleeding: w ithout bleeding Qualified Code(s): K29.00 - Acute gastritis without bleeding Patient Disposition: Home, Self-Care Instructions: Gastritis (ED) Additional Instructions: Your blood work was normal. Your EKG was normal. Your symptoms are consistent with inflammation of your stomach ( gastritis) Take Prilosec (omeprazole) 20 mg pills, 1 pill once a day for 1 month. This medication shuts off your acid production and lets the inflammation in your stomach and esophagus heal. Take extra-strength Gaviscon 10 mL (2 tsp) 4 times a day as needed for abdominal pain. Your are being discharged home with intranasal Narcan. All street drugs including cocaine are contaminated with fentanyl which can KILL you. If you are going to continue to use cocaine, you should make sure that there is a sober person with you that is not using drugs and that this person can administer intranasal Narcan in the event that you stop breathing. Follow-up with your doctor in 2 days. Please return to the emergency department if your symptoms get worse or if you develop any symptoms that are concerning to you. Prescriptions: New omeprazole 20 mg capsule,delayed release(DR/EC) 20 mg PO DAILY 30 Days Qty: 30 0RF Gaviscon Extra Strength 254-237.5 mg/5 mL suspension 10 ml PO QID PRN (Reason: dyspepsia) Qty: 355 0RF No Action prednisone 20 mg tablet 40 mg PO DAILY Qty: 10 0RF albuterol sulfate 90 mcg/actuation HFA aerosol inhaler 2 inh inhalation QID PRN (Reason: shortness of breath or wheezing) Qty: 6.7 0RF hydrocodone-homatropine [Hycodan] 5-1.5 mg/5 mL (5 mL) syrup 5 ml PO Q4-6H PRN (Reason: cough) Qty: 60 0RF Rx Instructions: Partial Fill upon patient request. levofloxacin 500 mg tablet 500 mg PO DAILY Qty: 10 0RF ibuprofen 400 mg tablet 400 mg PO Q6H PRN (Reason: pain) Qty: 20 0RF
[2023-06-16] MEDS: Magnesium Hydrox/Alum Hydrox 30 ML ORAL.SUSP PO (01:05)
[2023-06-16] MEDS: PHENobarb/Hyoscy/Atropine/Scop 10 ML ELIXIR PO (01:05)
[2023-06-16] MEDS: Lidocaine HCl Viscous 2 % 15 ML SOLUTION 10 ML PO (01:05)
[2023-06-16 01:09] VITALS: BP 115/84; PULSE 56; RESP 16; TEMP 36.7; O2SAT 99
[2023-06-16 01:11] LABS: Troponin-I High Sensitivity < 2.7 ng/L (<3.5-35.0)
[2023-06-16] MEDS: Naloxone HCl Nasal TAKE HOME 4 MG SPRAY 8 MG NOSTRILALT (01:33)
== END 2023-06-16 01:35 | disposition home or self-care (01) ==
PROVIDERS: Emergency Provider Emergency Medicine Emergency Medical Services
DX: K29.00 Acute gastritis without bleeding (principal); R10.13 Epigastric pain; F14.10 Cocaine abuse, uncomplicated; Z79.899 Other long term (current) drug therapy
CPT/HCPCS: 36415; 80053; 84484; 85025; 93005; 99283; 99285

== ENCOUNTER 2024-12-23 12:00 | Outpatient (REF) | payer MEDICAID, SELFPAY ==
[2024-12-23 14:28] LABS: Estimated Average Glucose 114 mg/dL; Hemoglobin A1c % 5.6 % (<6.0)
[2024-12-23 17:28] LABS: Alanine Aminotransferase 40 U/L (0-40); Albumin Level 4.7 g/dL (3.5-5.0); Alkaline Phosphatase 71 U/L (39-117); Amylase 45 U/L (28-100); Anion Gap 13 (12-20); Aspartate Amino Transferase 27 U/L (5-37); Bilirubin Total 0.5 mg/dL (0.0-1.0); Blood Urea Nitrogen 14 mg/dL (9-16); Calcium 9.9 mg/dL (8.4-10.2); Carbon Dioxide 27 mmol/L (22-29); Chloride 104 mmol/L (96-108); Cholesterol 217 mg/dL (<200); Estimated Glomerular Filt Rate > 60; Glucose Random 88 mg/dL (60-115); HDL Cholesterol 45 mg/dL (>40); LDL Cholesterol Calculated 138 mg/dL (<100); Potassium 4.2 mmol/L (3.3-5.1); Sodium 140 mmol/L (135-145); Total Protein 7.9 g/dL (6.5-8.0); Triglycerides 170 mg/dL (<150)
[2024-12-24 13:49] LABS: CT PCR NOT DETECTED (Not Detect.); NG PCR NOT DETECTED (Not Detect.)
[2024-12-25 04:34] LABS: HIV AB/AG Nonreactive (Nonreactive); HIV Num 1 0.06 S/CO (0.00-0.99); ~HepC Num1 0.12 S/CO (0.00-0.79); ~Hepatitis C Antibody Nonreactive (Nonreactive)
== END 2024-12-23 12:01 | disposition home or self-care (01) ==
LOC: HO.HHCL 12:00
PROVIDERS: Visit Provider Nurse Practitioner Family
DX: Z00.00 Encounter for general adult medical examination without abnormal findings (principal); E66.9 Obesity, unspecified; R14.0 Abdominal distension (gaseous)
CPT/HCPCS: 36415; 80053; 80061; 82150; 83036; 86803; 87389; 87491; 87591

== ENCOUNTER 2024-12-24 13:19 | Outpatient (REF) | payer MEDICAID, SELFPAY | END 2024-12-24 13:20 | disposition home or self-care (01) | LOC: HO.HHCLNP 13:19 | PROVIDERS: Visit Provider Nurse Practitioner Family | DX: R14.0 Abdominal distension (gaseous) (principal) | CPT/HCPCS: 87338 ==

== ENCOUNTER 2025-03-27 06:37 | Outpatient (REF) | payer MEDICAID, SELFPAY ==
--- NOTE | ~2025-03-27 | XR_ITS ---
EXAMINATION: XR SHOULDER, RIGHT CLINICAL INFORMATION: M25.511 - Pain in right shoulder COMPARISON: None available. TECHNIQUE: Three views of the right shoulder. FINDINGS: Normal bone mineralization. No fracture, dislocation, or suspicious bone lesion. Normal alignment. The glenohumeral joint is normal. The AC joint is normal. There is a type II acromion. No undersurface spurring. The subacromial space is preserved. Remainder of the soft tissue and bony structures appear normal. XR/XR shoulder RT min 2V IMPRESSION: Normal right shoulder. Electronically signed by: Barney Xiong MD 03/27/2025 09:06 AM EDT
--- NOTE | ~2025-03-27 | XR_ITS ---
EXAMINATION: XR SHOULDER, LEFT CLINICAL INFORMATION: M25.512 - Pain in left shoulder COMPARISON: None available. TECHNIQUE: Three views of the left shoulder. FINDINGS: Normal bone mineralization. No fracture, dislocation, or suspicious bone lesion. Normal alignment. The glenohumeral joint is normal. The AC joint is normal. There is a type II acromion. No undersurface spurring. The subacromial space is preserved. Remainder of the soft tissue and bony structures appear normal. XR/XR shoulder LT min 2V IMPRESSION: Normal left shoulder. Electronically signed by: Barney Xiong MD 03/27/2025 10:28 AM EDT
--- OUTSIDE RECORDS SUMMARY | 2025-03-27 06:39 | XMS_ITS | Clinical Summary ---
Author Organization [facility] Address [address] [place] [address] Care Team Providers Care Wet Room Supervisor Name Role Phone Unavailable Primary Care Provider Unavailabl e Source Comments PLEASE NOTE, if this patient is a minor, it may be UNLAWFUL to discuss sensitive information that is contained in these records (such as FAMILY PLANNING, MENTAL HEALTH or SUBSTANCE ABUSE) with the minor patient's parent or other person without the patient's specific authorization.[facility] Social History Tobacco Use Types Packs/Day Years Used Date Smoking Tobacco: Never Assessed Sex and Gender Information Value Date Recorded Sex Assigned at Male 03/09/2025 10:34 AM PDT Legal Sex Male 10:34 AM PDT Gender Identity Male 03/09/2025 10:34 AM PDT Sexual Orientation Not on file Plan of Treatment Upcoming Encounters Date Type Department Care Team (Late st Contact Info) Description 04/14/2025 1:00 PM EDT Behavioral Health Visit [facility] [address] [place] [address] AMANDA SEGOVIA [phone] Brennon Weaver, PMHNP [address] [place] [address] AMANDA Segovia [phone] Health Maintenance Due Date Last Done Comments Anxiety Screening 1981 Tobacco Screening 1981 Hypertension Screening (#1) 11/17/1999 Imm-Hepatitis B (1 of 3 - 19 + 3-dose series) 2000 Alcohol and Drug Screen 07/23/2024 Depression Annual Screen 07/23/2024 [id number] ( season) 2025 Imm-Influenza (#1) 2025 Diabetes Screening 12/24/2027 12/23/2024, 0 12/23/2024, 12/23/2024 Lipid Screening 12/23/2029 12/23/2024 Imm-DTaP/Tdap/Td (2 - Td or Tdap) 02/15/2035 025 HIV Screening Completed 12/23/2024, 12/23/2024 Hepatitis C Screening Completed 12/23/2024 Insurance [place] [facility]
--- OUTSIDE RECORDS SUMMARY | 2025-03-27 06:39 | XMS_ITS ---
Author Organization [email or web address] Address [address] [facility] [address] [place] [address] Care Team Providers Care House Superintendent Name Role Phone Amy Barros NP Primary Care Provider [phone] Valery Saleh RN Unavailable [phone] Sosa Moreira Unavailable CM Complex Status:Enrolled (Active) Start date:02/16/2025 Enrollment date:03/11/2025 Enrollment reason:ADT Feed Overview ADT-[facility] ED 02/15/25 Case Team Name Relationship Phone Valery Saleh RN(Responsible Staff) Registered Nurse [phone] Continued Care and Services Coordination
--- OUTSIDE RECORDS SUMMARY | 2025-03-27 06:39 | XMS_ITS ---
Author Organization [employer] Address [address] [facility] [address] [place] [address] Care Team Providers Care Grounds And Nursery Specialist Name Role Phone Amy Barros NP Primary Care Provider [phone] Valery Saleh RN Unavailable [phone] Sosa Moreira Unavailable CHW Complex Status:Outreach In Progress (Enrolling) Start date:02/16/2025 Enrollment reason:ADT Feed Overview ADT-[facility] ED 02/15/25. Please outreach for enrollment. Case Team Name Relationship Phone Sosa Moreira(Responsible Staff) [phone] Continued Care and Services Coordination
--- OUTSIDE RECORDS SUMMARY | 2025-03-27 06:40 | XMS_ITS | Encounter Summary ---
Author Organization [email or web address] Address [address] [facility] [address] [place] [address] Care Team Providers Care Information Assurance Engineer Name Role Phone Amy Barros NP Primary Care Provider [phone] Valery Saleh RN Unavailable [phone] Sosa Moreira Unavailable Reason for Visit * Reason Comments Med Change Request Encounter Details Date Type Department Care Team (Late st Contact Info) Description 03/24/2025 Refill [facility] [address] [place], [place] [id number] Amy Barros NP [address] [place] [address] Social History Tobacco Use Types Packs/Day Years Used Date Smoking Tobacco: Every Day Cigarettes Passive Smoke Exposure: Current Smokeless Tobacco: Never Depression Answer Date Recorded Patient Health Questionnaire-9 Score 14 03/11/2025 Patient Health Questionnaire-9 Score 14 03/11/2025 Last PHQ-9: Questionnaire Data Not on file 0 03/11/2025 Housing Stability Answer Date Recorded What is your housing situation today? I have pascale eaton 12/16/[address] you li ve. Do you have problems with any of the following? None of the above 12/16/2024 Food Insecurity Answer Date Recorded Within the past 12 months, y ou worried that your food would run out before you got money to buy more: Never True 12/16/2024 Within the past 12 months,th e food you bought just didn't last and you didn't have enough money to get more: Never True Transportation Answer Date Recorded In the past 12 months, has l ack of transportation kept you from medical appts, meetings, work or from getting things needed for daily living? No 12/16/2024 Utilities Answer Date Recorded In the past 12 months, has t he electric, gas, oil or water company threatened to shut off services in your home? No 12/16/2024 Depression Answer Date Recorded Patient Health Questionnaire-2 Score 4 03/11/2025 Internet Access Answer Date Recorded Internet Access Q1 Yes 12/16/2024 Internet Access Q2 Not on file 12/16/2024 Sex and Gender Information Value Date Recorded Sex Assigned at Male 09/18/2024 11:29 AM EST Legal Sex Male 1:16 PM EST Gender Identity Male 09/18/2024 11:29 AM EST Sexual Orientation Straight 09/18/2024 11 :30 AM EST documented as of this encounter Plan of Treatment Upcoming Encounters Date Type Department Care Team (Late st Contact Info) Description 04/03/2025 11:15 AM EDT Office Visit [facility] [address] [place] [address] Luciana Longoria, OD [address] [place] [address] documented as of this encounter Visit Diagnoses Not on filedocumented in this encounter Additional Health Concerns Assessment Noted Time PHQ-9 Depression Total Score: 14 025 1:19 PM EDT documented as of this encounter Care Teams Information Assurance Engineer Relationship Specialty Start Date End Date Amy Barros NP [address] [place] [address] PCP - General Family Medicine 12/23/24 Valery Saleh, LUCY [address] [place] [address] Registered Nurse Family Medicine 02/16/25 Sosa Moreira 02/16/25 documented as of this encounter
--- OUTSIDE RECORDS SUMMARY | 2025-03-27 06:40 | XMS_ITS | Encounter Summary ---
Author Organization [employer] Address [address] [facility] [address] [place] [address] Care Team Providers Care Refrigerator Car Icer Name Role Phone Amy Bergeron NP Primary Care Provider [phone] Valery Saleh RN Unavailable [phone] Sosa Moreira Unavailable Reason for Visit * Reason Comments Care Management C3CM- f/u call Encounter Details Date Type Department Care Team ([facility] st Contact Info) Description 03/24/2025 Patient Outreach [facility] [address] [place] [address] Amy Bergeron, ANTONIETA [address] [place] [address] Care Management (C3CM- f/u call) Social History Tobacco Use Types Packs/Day Years [...] AM EST documented as of this encounter Progress Notes * Valery Saleh RN - 03/24/2025 9:47 AM EDT KAITLIN Saleh RN placed outbound call to patient. Patient's name, and address confirmed. Patient states is doing well with no recent illnesses or emergency room visits. Patient states he has not been able to receive the omeprazole from his pharmacy. He states he has no tabs left and is requesting assistance with obtaining refill. Patient also reports having difficulty with sleep. He states he is currently taking Rx sertraline, 1/2 tab as instructed by PCP. Per patient, feels that Rx haseffect on some days, however, he continues to experience poor sleep on most nights. KAITLIN advised a message will be sent to PCP tor review. He agrees. CM informed patient of his scheduled visit with GI on 06/10/25. He verbalizes understanding and agrees to f/u sooner as needed. No further questions or concerns. CM reinforced direct contact information for any additional questions or concerns. Education provided on [facility] located in [facility]. Patient provided with after-hours line for [facility], , which offer night time triage service and option to transfer to referral and information aide provider if needed. Patient verbalizes understanding, and able to r epeat back to mortgage loan underwriter. A follow up call will be placed within 10 days, patient agrees with plan. Call to [facility]. Informed Rx omeprazole was received but will need for script to be changed to QTY 90 supply in order for patient's insurance to cover. Will forward to PCP to review. documented in this encounter Miscellaneous Notes * Addendum Note - Amy Bergeron NP - 03/24/2025 9:47 AM EDTAddended by: AMY BERGERON on: 03/24/2025 01:10 PM Modules accepted: Orders documented in this encounter Plan of Treatment Upcoming Encounters Date Type Department Care Team (Late st Contact Info) Description 04/03/2025 11:15 AM EDT Office Visit [facility] [address] [place] [address] TarkaLuciana, OD [address] [place] [address] documented as of this encounter Visit Diagnoses Diagnosis Gastroesophageal reflux disease without esophagitis- Primary Esophageal reflux documented in this encounter Additional Health Concerns Assessment Noted Time PHQ-9 Depression Total Score: 14 025 1:19 PM EDT documented as of this encounter Care Teams Refrigerator Car Icer Relationship Specialty Start Date End Date Amy Bergeron NP [address] [place] [address] PCP - General Family Medicine 12/23/24 Valery Saleh RN [address] [place] [id number] Registered Nurse Family Medicine 02/16/25 Sosa Moreira 02/16/25 documented as of this encounter
--- OUTSIDE RECORDS SUMMARY | 2025-03-27 06:40 | XMS_ITS | Clinical Summary ---
Author Organization [facility] Address [address] [place] [address] Care Team Providers Care Pizza Delivery Driver Name Role Phone Ref, Has No Pcp Or Primary Care Provider Unavail able Allergies No known active allergies Medications No known medications Active Problems No known active problems Encounters Date Type Department Care Team Description 02/15/2025 1:49 AM EDT - 02/15/2025 6:27 AM EDT Emergency [facility] Emergency Department [address] [place] [address] Rodrigo Reese MD Laceration of left upper quadrant of abdominal wall without foreign body without penetration into peritoneal cavity, initial encounter (Primary Dx) Discharge Disposition: Home or Self Care () 12/25/2024 9:30 AM EDT Clinical Support [facility] [address] [address] Encounter for drug screening (Primary Dx); Encounter for physical examination related to employment from Last 3 Months Immunizations Immunization Administration Dates Next Due Tetanus Toxoid, Reduced Diph theria Toxoid, and Acellular Pertussis Vaccine, Adsorbed 02/15/2025 Social History Tobacco Use Types Packs/Day Years Used Date Smoking Tobacco: Never Assessed Sex and Gender Information Value Date Recorded Sex Assigned at Not on file Legal Sex Male 9:50 AM EDT Gender Identity Not on file Sexual Orientation Not on file Last Filed Vital Signs Vital Sign Reading Time Taken Comments Blood Pressure 128/89 02/15/2025 4:15 AM EDT Pulse 89 02/15/2025 6:13 AM EDT Temperature 36.6 C (97.9 F) 02/15/2025 1:56 AM EDT Respiratory Rate 13 02/15/2025 6:13 AM EDT Oxygen Saturation 99% 02/15/2025 6:13 AM EDT Inhaled Oxygen Concentration - - Weight 90.7 kg (200 lb) 02/15/2025 1:56 AM EDT Height 172.7 cm (5' 8 ) 02/15/2025 1:56 AM EDT Body Mass Index 30.41 02/15/2025 1:56 AM EDT Plan of Treatment Health Maintenance Due Date Last Done Comments Varicella Vaccines (1 of 2 - 13+ 2-dose series) 1994 Hepatitis B Vaccines (1 of 3 - 19+ 3-dose series) 2000 Pneumococcal Vaccine: Pediat fredrick (0-5 Years) and At-Risk Patients (6-50 Years) (1 of 2 - PCV) 2000 Alcohol/Substance Use Screening 07/23/2024 Depression Screening and Follow-Up 07/23/2024 Social Drivers of Health Annual Screening 07/23/2024 COVID-19 Vaccine (2 - 2024- season) 2025 Influenza Vaccine (#1) 2025 Diabetes Screening 02/16/2028 02/15/2025, 12/23/2024 DTaP,Tdap,and Td Vaccines (3 - Td or Tdap) 02/15/2035 02/15/2025, 06/28/2021 RSV Vaccine (60+ years old a nd patients) (1 - 1-dose 75+ series) 2056 HIV Screening Completed 12/23/2024, 12/23/2024 Hepatitis C Screening Completed 12/23/2024 Procedures * Due to [place] state law, this organization might not be sharing negative HIV tests. Procedure Name Priority Date/Time Associated Diagnosis Comments ED LACERATION REPAIR Routine 02/15/2025 6:[address] ANGIOGRAM ABDOMEN PELVIS W WO CONTRAST STAT 02/15/2025 2:27 AM EDT LAVENDER TOP Routine 02/15/2025 1:59 AM EDT LIGHT GREEN TOP Routine 02/15/2025 1:59 AM EDT COMPREHENSIVE METABOLIC PANEL STAT 02/15/2025 1:59 AM EDT PROTIME-INR STAT 02/15/2025 1:59 AM EDT CBC AUTO DIFFERENTIAL STAT 02/15/2025 1:59 AM EDT BLOOD BANK HOLD TUBE Routine 02/15/2025 1:59 AM EDT RAINBOW DRAW Routine 02/15/2025 1:59 AM EDT from Last 3 Months Results * Due to [place] state law, this organization might not be sharing negative HIV tests. * Laceration Repair - ED (02/15/2025 6:27 AM EDT) Rodrigo Gavin MD - 02/15/2025 6:27 AM EDT Rodrigo Reese MD 03/20/2025 8:46 PM Laceration Repair - ED Date/Time: 02/15/2025 6:27 AM Performed by: Rodrigo Reese MD Authorized by: Rodrigo Reese MD Consent: Consent given by: Patient [place] protocol: An attending physician was present for the procedure OR the procedure was performed by an Advanced Practice Provider Anesthesia (see MAR for exact dosages): Anesthesia method: Local infiltration Local anesthetic: Lidocaine 1% WITH epi Laceration details: Location: Trunk Trunk location: LUQ abd Length (cm): 2 Depth (mm): 5 Repair type: Repair type: Simple Pre-procedure details: Preparation: Patient was prepped and draped in usual sterile fashion Exploration: Wound exploration: wound explored through full range of motion and entire depth of wound probed and visualized Wound extent: areolar tissue not violated, fascia not violated, no foreign body, no signs of injury, no nerve damage, no tendon damage, no underlying fracture and no vascular damage Treatment: Amount of cleaning: Extensive Irrigation solution: Tap water Irrigation method: Pressure wash and syringe Skin repair: Repair method: Arden Number of paula: 3 Approximation: Approximation: Close Post-procedure details: Dressing: Sterile dressing Patient tolerance of procedure: Tolerated well, no immediate complications us Rodrigo Reese MD IN CLINIC/BEDSIDE ORDERABLES Final Result * CT Angiogram Abdomen Pelvis W WO Contrast (02/15/2025 2:27 AM EDT) Anatomical Region Laterality Modality Body Computed Tomogra phy 02/15/2025 3:27 AM EDT Impressions 02/15/2025 4:41 AM EDT No acute abnormality in the abdomen and pelvis. No evidence of aortic dissection or intra-abdominal vascular abnormality. If this radiology report contains a blank impression section, it is an incomplete radiology report. Please contact the interpreting radiologist or applicable radiology division as soon as possible to obtain the completed interpretation. Workstation ID: [id number] Up-to-date CT equipment and radiation dose reduction techniques were employed. CTDIvol: 12.6 - 22.2 mGy. DLP: 2235 mGy-cm. Narrative 02/15/2025 4:41 AM EDT EXAMINATION: CT ANGIOGRAM ABDOMEN PELVIS W WO CONTRAST INDICATION: TECHNIQUE: Images of the abdomen and pelvis were obtained without intravenous contrast. Subsequently, intravenous contrast was administered and arterial phase images were obtained. Coronal and sagittal reformats were generated. 3D postprocessed reformats were also created. COMPARISON: None available. FINDINGS: LOWER THORAX: The visualized lung bases are clear. VASCULAR: The aortoiliac system and its major branches are normal in caliber without aneurysm, dissection, or rupture. HEPATOBILIARY: Diffuse hepatic steatosis. No focal hepatic lesions. No biliary ductal dilatation. Normal gallbladder. SPLEEN: No splenomegaly. PANCREAS: No focal masses or ductal dilatation. ADRENAL GLANDS: No adrenal nodules. KIDNEYS/URETERS: No hydronephrosis, calculi, or solid mass lesions. GI TRACT: No distention or wall thickening. PERITONEUM/RETROPERITONEUM: No ascites or free air. LYMPH NODES: No lymphadenopathy. PELVIC ORGANS/BLADDER: Unremarkable. BONES AND SOFT TISSUES: Unremarkable. Resulting Agency Comment [id number] Procedure Note Priya Guzman - 02/15/2025 EXAMINATION: CT ANGIOGRAM ABDOMEN PELVIS W WO CONTRAST INDICATION: TECHNIQUE: Images of the abdomen and pelvis were obtained withoutintravenous contrast. Subsequently, intravenous contrast was administeredand arterial phase images were obtained. Coronal and sagittal reformatswere generated. 3D postprocessed reformats were also created. COMPARISON: None available. FINDINGS: LOWER THORAX: The visualized lung bases are clear. VASCULAR: The aortoiliac system and its major branches are normal incaliber without aneurysm, dissection, or rupture. HEPATOBILIARY: Diffuse hepatic steatosis. No focal hepatic lesions. Nobiliary ductal dilatation. Normal gallbladder. SPLEEN: No splenomegaly. PANCREAS: No focal masses or ductal dilatation. ADRENAL GLANDS: No adrenal nodules. KIDNEYS/URETERS: No hydronephrosis, calculi, or solid mass lesions. GI TRACT: No distention or wall thickening. PERITONEUM/RETROPERITONEUM: No ascites or free air. LYMPH NODES: No lymphadenopathy. PELVIC ORGANS/BLADDER: Unremarkable. BONES AND SOFT TISSUES: Unremarkable. IMPRESSION: No acute abnormality in the abdomen and pelvis. No evidence of aortic dissection or intra-abdominal vascularabnormality. If this radiology report contains a blank impression section, it is anincomplete radiology report. Please contact the interpreting radiologistor applicable radiology division as soon as possible to obtain thecompleted interpretation. Workstation ID: [id number] Up-to-date CT equipment and radiation dose reduction techniques wereemployed. CTDIvol: 12.6 - 22.2 mGy. DLP: 2235 mGy-cm. Rodrigo Reese MD IM CT PROCEDURES Final Resul t * (ABNORMAL) CBC Auto Differential (02/15/2025 1:59 AM EDT) WBC 10.9(H) 3.8 - 10.8 10*3/uL 02/15/2025 2:43 AM EDT [facility] RBC 4.78 4.20 - 5.80 10*6/uL 02/15/2025 2:43 AM EDT [employer] Cream[employer]HR [facility] Hemoglobin 15.9 13.2 - 17.1 g/dL 02/15/2025 2:43 AM EDT [facility] Hematocrit 44.7 38.5 - 50.0 % 02/15/2025 2:43 AM EDT [facility] MCV 93.5 80.0 - 100.0 fL 02/15/2025 2:43 AM EDT [facility] MCH 33.3(H) 27.0 - 33.0 pg 02/15/2025 2:43 AM EDT [facility] MCHC 35.6 32.0 - 36.0 g/dL 02/15/2025 2:43 AM EDT [facility] RDW 12.4 11.0 - 15.0 % 02/15/2025 2:43 AM EDT [facility] Platelets 323 140 - 400 10*3/uL 02/15/2025 2:43 AM EDT [facility] MPV 8.9 7.5 - 12.5 fL 02/15/2025 2:43 AM EDT [facility] Neutrophil % 51.2 % 02/15/2025 2:43 AM EDT [facility] Immature Grans % 0.3 0.0 - 0.9 % 02/15/2025 2:43 AM EDT [facility] Lymphocyte % 36.2 % 02/15/2025 2:43 AM EDT [facility] Monocyte % 9.1 % 02/15/2025 2:43 AM EDT [facility] Eosinophil % 2.9 % 02/15/2025 2:43 AM EDT [facility] Basophil % 0.3 % 02/15/2025 2:43 AM EDT [facility] Neutrophil # 5.57 1.50 - 7.80 10*3/uL 02/15/2025 2:43 AM EDT [facility] Immature Grans # 0.03 <=0.03 10*3/uL 02/15/2025 2:43 AM EDT [facility] Lymphocyte # 3.90 0.85 - 3.90 10*3/uL 02/15/2025 2:43 AM EDT [facility] Monocyte # 1.00(H) 0.20 - 0.95 10*3/uL 02/15/2025 2:43 AM EDT [facility] Eosinophil # 0.30 0.02 - 0.50 10*3/uL 02/15/2025 2:43 AM EDT [facility] Basophil # <0.03 0.00 - 0.20 10*3/uL 02/15/2025 2:43 AM EDT [facility] nRBC % 0.0 /100 WBCs 02/15/2025 2:43 AM EDT [facility] nRBC # <0.01 <0.01 10*3/uL 02/15/2025 2:43 AM EDT [facility] Blood Structure of peripheral vein / Unknown Venipuncture / Unknown 02/15/2025 1:59 AM EDT 02/15/2025 2:06 AM EDT us Rodrigo Reese MD LAB BLOOD ORDERABLES Final Re sult [facility] [address] [place] [address], [place] * Blood Bank Hold Tube (02/15/2025 1:59 AM EDT) Extra Tube Hold for add-ons. [place] [employer] 02/15/2025 6:05 AM EDT [facility] Comment:Auto resulted. Blood Structure of peripheral vein / Unknown Venipuncture / Unknown 02/15/2025 1:59 AM EDT 02/15/2025 2:06 AM EDT Rodrigo Reese MD LAB BLOOD BANK TEST ORDERABLE S Final Result Performing Organization Address City/[facility]/ZIP Co de Phone Number [facility] [address] [place] [address], [place] * Lavender Top (02/15/2025 1:59 AM EDT) Extra Tube Hold for add-ons. 02/15/2025 6:05 AM EDT [facility] Comment:Auto resulted. Blood Structure of peripheral vein / Unknown Venipuncture / Unknown 02/15/2025 1:59 AM EDT 02/15/2025 2:06 AM EDT Rodrigo Reese MD LAB BLOOD ORDERABLES Final Re sult Performing Organization Address [facility] Co de Phone Number [facility] [address] [place] [phone], [place] * Light Green Top (02/15/2025 1:59 AM EDT) Extra Tube Hold for add-ons. 02/15/2025 6:05 AM EDT [facility] Comment:Auto resulted. Blood Structure of peripheral vein / Unknown Venipuncture / Unknown 02/15/2025 1:59 AM EDT 02/15/2025 2:07 AM EDT Rordigo Reese MD LAB BLOOD ORDERABLES Final Re sult Performing Organization Address City/[facility]/ZIP Co de Phone Number [facility] [address] [place] [phone], [place] * Protime-INR (02/15/2025 1:59 AM EDT) PT 10.5 9.7 - 11.9 Seconds 02/15/2025 3:49 AM EDT [facility] INR 1.0 0.9 - 1.1 02/15/2025 3:49 AM EDT [facility] Comment:The optimal therapeu tic INR range for patients treated with Vitamin K antagonists (VKAS, e.g., Warfarin) is 2.0 to 3.5. Discuss the desired range with your doctor/care team. Blood Structure of peripheral vein / Unknown Venipuncture / Unknown 02/15/2025 1:59 AM EDT 02/15/2025 2:07 AM EDT us Rodrigo Reese MD LAB BLOOD ORDERABLES Final Re sult [facility] [address] [place] [address], * (ABNORMAL) CMP - Comprehensive Metabolic Panel (02/15/2025 1:59 AM EDT) NA 136 135 - 145 mmol/L 02/15/2025 2:31 AM EDT [facility] K 3.4(L) 3.5 - 5.3 mmol/L 02/15/2025 2:31 AM EDT [facility] Cl 99 98 - 107 mmol/L 02/15/2025 2:31 AM EDT [facility] CO2 20(L) 22 - 32 mmol/L 02/15/2025 2:31 AM EDT [facility] Anion Gap 17(H) 5 - 15 02/15/2025 2:31 AM EDT [facility] Glucose 125(H) 65 - 99 mg/dL 02/15/2025 2:31 AM EDT [facility] Creatinine 0.97 0.60 - 1.30 mg/dL 02/15/2025 2:31 AM EDT [facility] Calcium 9.7 8.6 - 10.5 mg/dL 02/15/2025 2:31 AM EDT [facility] Total Protein 8.1(H) 6.0 - 8.0 g/dL 02/15/2025 2:31 AM EDT [facility] Albumin 4.8 3.5 - 5.2 g/dL 02/15/2025 2:31 AM EDT [facility] Bilirubin, Total 0.3 0.2 - 1.2 mg/dL 02/15/2025 2:31 AM EDT [facility] Alkaline Phosphatase 87 35 - 129 U/L 02/15/2025 2:31 AM EDT [facility] AST 27 10 - 40 U/L 02/15/2025 2:31 AM EDT [facility] ALT 41(H) 10 - 40 U/L 02/15/2025 2:31 AM EDT [facility] BUN 9 7 - 23 mg/dL 02/15/2025 2:31 AM EDT [facility] eGFR >90 >=60 mL/min/1 .73m2 02/15/2025 2:31 AM EDT [facility] Comment:The estimated glomer ular filtration rate (eGFR) is calculated using a new formula developed by the NKF-ASN task force to eliminate race-based correction factors. The new formula uses serum/plasma creatinine, age, and gender to determine eGFR. A value below 60mls/min might indicate kidney disease and will be flagged. For additional information, see Kala et al, Am J Kidney Dis. 2021;79(2):268- 288, A Unifying Approach for GFR estimation: Recommendations of the NKF-ASN Task Force on Reassessing the Inclusion of Race in Diagnosing Kidney Disease . Globulin, Total 3.3 2.1 - 4.2 g/dL 02/15/2025 2:31 AM EDT [facility] A/G Ratio 1.5 1.5 - 3.0 02/15/2025 2:31 AM EDT [facility] Blood Structure of peripheral vein / Unknown Venipuncture / Unknown 02/15/2025 1:59 AM EDT 02/15/2025 2:07 AM EDT us Rodrigo Reese MD LAB BLOOD ORDERABLES Final Re sult [facility] [address] [place] [address], from Last 3 Months [facility] Care Teams Pizza Delivery Driver Relationship Specialty Start Date End Date Ref, Has No Pcp Or DO NOT EDIT THIS RECORD VIA PROVIDER ON THE FLY PCP - General Rugby League Footballer 12/25/24
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
== END 2025-03-27 06:38 | disposition home or self-care (01) ==
LOC: HO.HOSX 06:37
PROVIDERS: Visit Provider Physician Assistant
DX: M77.12 Lateral epicondylitis, left elbow (principal); M77.8 Other enthesopathies, not elsewhere classified; M25.511 Pain in right shoulder; M25.512 Pain in left shoulder
CPT/HCPCS: 73030; 99212

== ENCOUNTER 2025-03-27 08:54 | Outpatient (AMB) | payer MEDICAID, SELFPAY ==
--- NOTE | 2025-03-27 09:16 | A.OFFVIS_ITS ---
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 Patient reports his pain is located at the top of his shoulder, just below his neck. No injury. States his pain presented after he had a bulge removed that was below his underarm. He complains of a cramping sensation throughout his arm and hand. As well as numbness and tingling. No other treatment. 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 He states many years ago he fell off a horse and injured the left shoulder. He states he did not seek medical attention at that time. Currently, he denies recent injury. Over time he has developed worsening pain in the left shoulder and arm. He did have an excision of lipoma in the left underarm . He c/o n/t in the left hand at night. Co weakness in the LUE. [facility] Family History (Updated 01/07/25 @ 14:47 by Laura Saleh) Father Colon cancer Social History (Updated 03/27/25 @ 09:21 by Brianne Wyatt [facility]) Alcohol intake: current Alcohol intake frequency: a few times a month Alcohol type: beer Patient Tobacco Use Status: Current everyday Tobacco user Substance Use Type: Crack/Cocaine Current occupational status: unemployed Current occupation: right hand dominant Review of Systems Const All systems reviewed & are unremarkable except as noted in HPI and below Physical Exam Vital Signs: BMI result Body Mass Index 31.0 Const General: cooperative and no acute distress Orientation/consciousness: patient oriented x3 Resp Effort & Inspection: normal respiratory effort and able to speak in complete sentences Cardio Peripheral pulses: Peripheral pulses 2+ throughout Neuro General: patient oriented x3 Extrem Other: Left shoulder normal to inspection he has full range of motion in all planes. He does have tenderness over the proximal biceps with a positive Julian's. He also has pain with Rashid. He is able to reproduce rotator cuff strength with mild discomfort. Neurovascularly intact. left Elbow skin intact. No erythema or swelling. ROM full without pain. Tenderness over the lateral epicondyle and pain with resisted wrist extension. NVI. Results Reviewed Results Reviewed: X-rays of the left shoulder obtained in the office today and reviewed by me show mild sclerosis under the acromion with well-preserved joint space. Assessment & Plan Assessment & Plan (1) Left shoulder tendonitis: Code(s): M77.8 - Other enthesopathies, not elsewhere classified Category: Medical (2) Lateral epicondylitis, left elbow: Code(s): M77.12 - Lateral epicondylitis, left elbow Category: Medical Plan We discussed options today which includes physical therapy for rotator cuff range of motion and periscapular stabilization. We discussed the role of anti- inflammatory use which he was given a prescription for ibuprofen 3 times a day to use for occasional flare-ups. If symptoms persist or worsen over next 6-8 weeks can contact our office for a steroid injection otherwise she will follow up as needed. Orders: Orders XR shoulder RT min 2V Today Mackenzie Potts PA-C M25.511 - Pain in right shoulder XR shoulder LT min 2V Today Mackenzie Potts PA-C M25.512 - Pain in left shoulder PT Evaluation and Treatment Today Mackenzie Potts PA-C M77.12 - Lateral epicondylitis, left elbow, M77.8 - Other enthesopathies, not elsewhere classified Medications: New ibuprofen 800 mg PO Q8H PRN 90 tabs 3RF pain 30 days Mackenzie Potts PA-C S52.209D - Unspecified fracture of shaft of unspecified ulna, subsequent encounter for closed fracture with routine healing Discontinued hydrocodone-homatropine 5-1.5 mg/5 mL (5 mL) (Hycodan) Partial Fill upon patient request. Discontinued Reason: Patient no longer taking 5 mL PO Q4-6H PRN 60 mL 0RF cough Brianne F Edmundo, RMA prednisone Discontinued Reason: Patient no longer taking 40 mg (2 x 20 mg) PO DAILY 10 tabs 0RF MARII Hatch levofloxacin Discontinued Reason: Patient no longer taking 500 mg PO DAILY 10 tabs 0RF MARII Hatch aluminum hydrox-magnesium carb 254-237.5 mg/5 mL (Gaviscon Extra Strength) Discontinued Reason: Patient no longer taking 10 mL PO QID PRN 355 mL 0RF dyspepsia Coding Level of Care Code New Pt Level 3 (83567) Complex EM visit Add On G2211 Diagnoses Left shoulder tendonitis M77.8 Lateral epicondylitis, left elbow M77.12
[2025-03-27 09:18] VITALS: BMI 31.0
== END 2025-03-27 10:49 | disposition home or self-care (01) ==
PROVIDERS: Visit Provider Physician Assistant
DX: M77.8 Other enthesopathies, not elsewhere classified (principal); M77.12 Lateral epicondylitis, left elbow
CPT/HCPCS: 99203

== ENCOUNTER → 2025-03-27 08:57 | Outpatient (BNV) | payer MEDICAID, SELFPAY | PROVIDERS: Visit Provider Radiology Diagnostic Radiology | DX: M25.511 Pain in right shoulder (principal); M25.512 Pain in left shoulder | CPT/HCPCS: 73030 ==

== ENCOUNTER 2025-06-10 10:37 | Outpatient (AMB) | payer MEDICAID, SELFPAY ==
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
[2025-06-10 10:56] VITALS: BP 128/82; PULSE 72; O2SAT 97; BMI 30.1
--- OUTSIDE RECORDS SUMMARY | 2025-06-10 20:43 | XMS_ITS ---
Author Organization [employer] Address [address] [place] [address] Care Team Providers Care Parish Nurse Name Role Phone Amy Barros NP Primary Care Provider [phone] Valery Saleh RN Unavailable Sosa Moreira Unavailable CM Complex Status:Enrolled (Active) Start date:02/16/2025 Enrollment date:03/11/2025 Enrollment reason:ADT Feed Overview ADT-[facility] ED 02/15/25 Case Team Name Relationship Phone Valery Saleh RN(Responsible Staff) Registered Nurse [phone] Continued Care and Services Coordination
--- OUTSIDE RECORDS SUMMARY | 2025-06-10 20:43 | XMS_ITS | Clinical Summary ---
Author Organization [facility] Address [address] [place] [address] Care Team Providers Care Motor Scooter Repairer Name Role Phone Ref, Has No Pcp Or Primary Care Provider Unavail able Allergies No known active allergies Medications No known medications Active Problems No known active problems Immunizations Immunization Administration Dates Next Due Tetanus [...] Social Drivers of Health Annual Screening 07/23/2024 Influenza Vaccine (#1) 2025 COVID-19 Vaccine (2 - 2024- season) 2025 Diabetes Screening 02/16/2028 02/15/2025, 12/23/2024 DTaP,Tdap,and Td Vaccines (3 - Td or Tdap) 02/15/2035 02/15/2025, 06/28/2021 HIV Screening Completed 12/23/2024, 12/23/2024 Hepatitis C Screening Completed 12/23/2024 Procedures * Due to [place] [employer] law, this organization might not be sharing negative HIV tests. Procedure Name Priority Date/Time Associated Diagnosis Comments COMPREHENSIVE METABOLIC PANEL STAT 02/15/2025 1:59 AM EDT from Last 3 Months or Most Recently Relevant to Health Maintenance Results * Due to [place] [employer] law, this organization might not be sharing negative HIV tests. * (ABNORMAL) CMP - Comprehensive Metabolic Panel (02/15/2025 1:59 AM EDT) NA 136 135 - 145 mmol/L 02/15/2025 2:31 AM EDT [facility] K 3.4(L) 3.5 - 5.3 mmol/L 02/15/2025 2:31 AM EDT [facility] Cl 99 98 - 107 mmol/L 02/15/2025 2:31 AM EDT [facility] CO2 20(L) 22 - 32 mmol/L 02/15/2025 2:31 AM EDT [facility] Anion Gap 17(H) 5 - 15 02/15/2025 2:31 AM EDT [facility] Glucose 125(H) 65 - 99 mg/dL 02/15/2025 2:31 AM EDT [facility] Creatinine 0.97 0.60 - 1.30 mg/dL 02/15/2025 2:31 AM EDT [facility] Calcium 9.7 8.6 - 10.5 mg/dL 02/15/2025 2:31 AM EDT [facility] Total Protein 8.1(H) 6.0 - 8.0 g/dL 02/15/2025 2:31 AM EDT [facility] Albumin 4.8 3.5 - 5.2 g/dL 02/15/2025 2:31 AM EDT [facility] Bilirubin, Total 0.3 0.2 - 1.2 mg/dL 02/15/2025 2:31 AM EDT [facility] Alkaline Phosphatase 87 35 - 129 U/L 02/15/2025 2:31 AM EDT [facility] AST 27 10 - 40 U/L 02/15/2025 2:31 AM EDT [facility] ALT 41(H) 10 - 40 U/L 02/15/2025 2:31 AM EDT [facility] BUN 9 7 - 23 mg/dL 02/15/2025 2:31 AM EDT [facility] eGFR >90 >=60 mL/min/1 .73m2 02/15/2025 2:31 AM EDT [facility] Comment:The estimated glomer [...] - 4.2 g/dL 02/15/2025 2:31 AM EDT [facility] A/G Ratio 1.5 1.5 - 3.0 02/15/2025 2:31 AM EDT [facility] Blood Structure of peripheral vein / Unknown Venipuncture / Unknown 02/15/2025 1:59 AM EDT 02/15/2025 2:07 AM EDT us Rodrigo Reese MD LAB BLOOD ORDERABLES Final Re sult [facility] [facility] [address] [place] [address], from Last 3 Months or Most Recently Relevant to Health Maintenance Insurance [facility] Care Teams Motor Scooter Repairer Relationship Specialty Start Date End Date Ref, Has No Pcp Or DO NOT EDIT THIS RECORD VIA PROVIDER ON THE FLY PCP - General Sleep Lab Technologist 12/25/24
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
--- OUTSIDE RECORDS SUMMARY | 2025-06-10 20:43 | XMS_ITS ---
Author Organization [employer] Address [address] [place] [address] Care Team Providers Care Cell Biologist Name Role Phone Amy Barros NP Primary Care Provider [phone] Valery Saleh RN Unavailable [phone] Sosa Moreira Unavailable CHW Complex Status:Enrolled (Active) Start date:02/16/2025 Enrollment date:03/30/2025 Enrollment reason:ADT Feed Overview ADT-[facility] ED 02/15/25. Please outreach for enrollment. Case Team Name Relationship Phone Sosa Moreira(Responsible Staff) [phone] Continued Care and Services Coordination
--- OUTSIDE RECORDS SUMMARY | 2025-06-10 20:43 | XMS_ITS | Encounter Summary ---
Author Organization [employer] Address [address] [facility] [place] [address] Care Team Providers Care Plexiglas Former Name Role Phone Amy Barros NP Primary Care Provider [phone] Valery Saleh RN Unavailable [phone] Sosa Moreira Unavailable Reason for Visit * Reason Comments Care Coordination SDOH/appointment rem lianna Encounter Details Date Type Department Care Team (Latest Contact Info) Description 06/09/2025 Patient Outreach [facility] [address] [place] [address] Amy Barros, ANTONIETA [address] [place] [address] Care Coordination (SDOH/appointment reminder) Social History Tobacco Use Types Packs/Day Years [...] with others, in a hotel, in a fci, living outside on the street, on a [...] as of this encounter Progress Notes * Sosa Moreira - 06/09/2025 1:23 PM EST CHW Sosa Moreira placed outbound call to patient to follow up on SDOH needs. Patient's name, and address confirmed. Patient states is doing well. CHW reminded him of his appointment on 06/09/25at [facility], patient stated he will attend. Patient stated he will pass by the my office so I can give him a couple housing applications he will have his niece help him fill them out. No further questions or concerns. CHW reinforced direct contact information or CM for any additional questions or concerns and extended clinic hours on Mondays and Wednesdays, and Walk-In Urgent Care Located in [facility] of [facility]. Patient provided with after-hours line for [facility], , which offer night time triage service and option to transfer to butcher scullion provider if needed. Patient verbalizes understanding, and able to repeat back to creative writer. A follow up call willbe placed within 10 days, patient agrees with plan. documented in this encounter Plan of Treatment Upcoming Encounters Date Type Department Care Team (Late st Contact Info) Description 08/11/2025 9:00 AM EST Office Visit [facility] [address] [place], [place] [id number] Von Luciana, OD [address] [place] [address] documented as of this encounter Visit Diagnoses Not on filedocumented in this encounter Additional Health Concerns Assessment Noted Time PHQ-9 Depression Total Score: 14 025 1:19 PM EDT documented as of this encounter Care Teams Plexiglas Former Relationship Specialty Start Date End Date Amy Barros NP [address] [place] [address] PCP - General Family Medicine 12/23/24 Valery Saleh, RN [address] [place] [address] Registered Nurse Family Medicine 02/16/25 Sosa Moreira 02/16/25 documented as of this encounter
== END 2025-06-10 11:48 | disposition home or self-care (01) ==
PROVIDERS: PCP Nurse Practitioner Family; Visit Provider Nurse Practitioner Family
DX: Z01.818 Encounter for other preprocedural examination (principal); Z12.11 Encounter for screening for malignant neoplasm of colon; K21.9 Gastro-esophageal reflux disease without esophagitis; S31.119A Laceration without foreign body of abdominal wall, unspecified quadrant without penetration into peritoneal cavity, initial encounter
CPT/HCPCS: 99203

== ENCOUNTER → 2025-06-10 10:37 | Outpatient (BNVA) | payer MEDICAID, SELFPAY | PROVIDERS: PCP Nurse Practitioner Family; Visit Provider Nurse Practitioner Family | DX: Z01.818 Encounter for other preprocedural examination (principal); K21.9 Gastro-esophageal reflux disease without esophagitis; S31.119A Laceration without foreign body of abdominal wall, unspecified quadrant without penetration into peritoneal cavity, initial encounter | CPT/HCPCS: 99212 ==